=== PATIENT | male | born 1980 | race Caucasian/White ===

== ENCOUNTER 2018-10-06 22:20 | Emergency (ER) | payer SELFPAY ==
[~2018-10-06] VITALS: Ht 175.3 cm; Wt 82.0 kg
[2018-10-07] MEDS ORDERED: KETOROLAC 60MG/2ML VIAL IM ONE (06:30)
[2018-10-07 07:04] VITALS: BP 129/75
== END 2018-10-07 07:09 | disposition home or self-care (01) ==
LOC: ER 22:20
DX: S29.012A Strain of muscle and tendon of back wall of thorax, initial encounter (principal); M54.5 Low back pain; J45.909 Unspecified asthma, uncomplicated; I10 Essential (primary) hypertension; X50.0XXA Overexertion from strenuous movement or load, initial encounter; Y93.89 Activity, other specified; Y92.89 Other specified places as the place of occurrence of the external cause; Y99.8 Other external cause status
CPT/HCPCS: 96372; 99283; J1885

== ENCOUNTER 2018-10-21 01:30 | Emergency (ER) | payer SELFPAY ==
[~2018-10-21] VITALS: Ht 175.3 cm; Wt 82.0 kg
[2018-10-21] MEDS ORDERED: KETOROLAC 60MG/2ML VIAL IM STA (05:23)
[2018-10-21 06:00] VITALS: BP 135/69
== END 2018-10-21 06:09 | disposition home or self-care (01) ==
LOC: ER 01:30
DX: G89.29 Other chronic pain (principal); M54.5 Low back pain; M54.30 Sciatica, unspecified side
CPT/HCPCS: 96372; 99283; J1885